=== PATIENT | male | born 1950 | race Caucasian/White ===

== ENCOUNTER 2017-06-12 12:45 | Inpatient (IN) | payer OTHER ==
[~2017-06-12] VITALS: Ht 170.2 cm; Wt 100.7 kg
[2017-06-12 13:31] LABS: PLATELET COUNT 213 x10^3mcL (130-400); RED CELL DISTRIBUTION WIDTH 14.3 % (11.5-14.5)
[2017-06-12 13:32] LABS: BASOPHIL % 0.7 % (0-2)
[2017-06-12 13:40] LABS: CALCIUM 8.5 mg/dL (8.5-10.1); CARBON DIOXIDE 27.6 mmol/L (21-32); CREATININE SERUM 1.3 mg/dL (0.7-1.3)
[2017-06-12] MEDS ORDERED: NOR10 PO (15:06)
[2017-06-12] MEDS ORDERED: SYNTHROID0.088 MG PO (15:06)
[2017-06-12] MEDS ORDERED: GLUCOPHAGE XR500 MG PO (15:06)
[2017-06-12] MEDS ORDERED: BEN20 PO (15:06)
[2017-06-12] MEDS ORDERED: SIMVASTATIN20 M1 PO (15:06)
[2017-06-12] MEDS ORDERED: KEN025C TOP (15:07)
[2017-06-12] MEDS ORDERED: LOSARTAN POTASS50 M1 PO (15:07)
[2017-06-12 15:32] VITALS: BP 158/86
[2017-06-12 15:39] VITALS: Ht 170.2 cm; Wt 100.7 kg
[2017-06-12 16:14] LABS: microscopic required? YES; urine erythrocyte TRACE (NEGATIVE)
[2017-06-12 16:26] LABS: AMPHETAMINE QUAL UR NONE DETECTED (NEG <=1000)
[2017-06-12 17:56] VITALS: BP 146/87
[2017-06-12 20:47] LABS: AMYLASE 69 U/L (25-115); LIPASE 190 IU/L (73-393); MAGNESIUM 2.1 mg/dL (1.8-2.4); PHOSPHOROUS 2.5 mg/dL (2.5-4.9)
[2017-06-12 20:52] LABS: CHOLESTEROL 131 mg/dL (<200); CHOLESTEROL/HDL RATIO 5.5; HDL CHOLESTEROL 24 mg/dL (40-60); TRIGLYCERIDES 418 mg/dL (<150)
[2017-06-12 20:55] LABS: T3 TOTAL 1.04 ng/mL
[2017-06-12 20:56] LABS: FREE T4 1.16 ng/dL (0.76-1.46); FREE THYROXINE INDEX 3.3 ug/dL (1.4-4.5); T4(THYROXINE) 8.8 ug/dL (4.7-13.3)
[2017-06-12 21:14] VITALS: BP 149/90
[2017-06-13 05:38] VITALS: BP 152/94
[2017-06-13 06:02] LABS: BASOPHIL % 0.6 % (0-2); PLATELET COUNT 191 x10^3mcL (130-400); RED CELL DISTRIBUTION WIDTH 14.3 % (11.5-14.5)
[2017-06-13 06:28] LABS: CALCIUM 8.9 mg/dL (8.5-10.1); CARBON DIOXIDE 25.9 mmol/L (21-32); CHLORIDE SERUM 105 mmol/L (98-107); CREATININE SERUM 1.1 mg/dL (0.7-1.3); GFR1 > 60 mL/min; GLUCOSE SERUM 126 mg/dL (74-106); MAGNESIUM 2.2 mg/dL (1.8-2.4); PHOSPHOROUS 3.6 mg/dL (2.5-4.9); POTASSIUM SERUM 3.8 mmol/L (3.5-5.1); SODIUM SERUM 140 mmol/L (136-145)
[2017-06-13 07:45] VITALS: BP 160/92
[2017-06-13] MEDS ORDERED: NOR10 PO (12:37)
[2017-06-13] MEDS ORDERED: COZAAR100 MG PO ×2 (12:37→12:38)
[2017-06-13 13:13] VITALS: BP 160/92
[2017-06-13 13:30] VITALS: BP 143/87
[2017-06-13 14:13] VITALS: BP 143/87
[2017-06-13 16:20] VITALS: BP 120/91
== END 2017-06-13 18:38 | disposition home or self-care (01) | DRG 74 ==
LOC: ED 12:45 → DU 14:29
PROVIDERS: Emergency Medicine; ADMIT Family Medicine
DX: G90.9 Disorder of the autonomic nervous system, unspecified (principal); E11.65 Type 2 diabetes mellitus with hyperglycemia; I10 Essential (primary) hypertension; E78.1 Pure hyperglyceridemia; E11.9 Type 2 diabetes mellitus without complications; R55 Syncope and collapse; E78.00 Pure hypercholesterolemia, unspecified; E03.9 Hypothyroidism, unspecified; E11.51 Type 2 diabetes mellitus with diabetic peripheral angiopathy without gangrene; Z79.84 Long term (current) use of oral hypoglycemic drugs; Z88.0 Allergy status to penicillin; Z82.49 Family history of ischemic heart disease and other diseases of the circulatory system; Z80.9 Family history of malignant neoplasm, unspecified; Z83.3 Family history of diabetes mellitus; Z79.899 Other long term (current) drug therapy
CPT/HCPCS: 83880; 84439; J7030; Q0092

== ENCOUNTER 2018-02-04 07:09 | Emergency (ER) | payer OTHER ==
[~2018-02-04] VITALS: Ht 170.2 cm; Wt 95.2 kg
[~2018-02-04 07:09] MED LIST: BEN20 PO; COZAAR100 MG PO; GLUCOPHAGE XR500 MG PO; KEN025C TOP; LOSARTAN POTASS50 M1 PO; NOR10 PO; SIMVASTATIN20 M1 PO; SYNTHROID0.088 MG PO
[2018-02-04 07:13] VITALS: Ht 170.2 cm; Wt 95.2 kg
[2018-02-04 07:52] LABS: BASOPHIL % 0.4 % (0-2); PLATELET COUNT 205 x10^3mcL (130-400)
[2018-02-04 08:07] LABS: CALCIUM 8.6 mg/dL (8.5-10.1); CREATININE SERUM 1.3 mg/dL (0.7-1.3); POTASSIUM SERUM 4.1 mmol/L (3.5-5.1)
[2018-02-04 08:09] LABS: ALBUMIN 3.7 g/dL (3.4-5.0); BILIRUBIN TOTAL 0.6 mg/dL (0.20-1.00); TOTAL PROTEIN, SERUM 7.3 g/dL (6.4-8.2)
[2018-02-04 09:33] LABS: UA SPECIFIC GRAVITY <=1.005 (1.005-1.035); microscopic required? YES; urine erythrocyte NEGATIVE (NEGATIVE)
[2018-02-04 10:14] VITALS: BP 137/81
== END 2018-02-04 10:14 | disposition home or self-care (01) ==
LOC: ED 07:09
PROVIDERS: Specialist
DX: N28.1 Cyst of kidney, acquired (principal); I10 Essential (primary) hypertension; E11.9 Type 2 diabetes mellitus without complications; E78.00 Pure hypercholesterolemia, unspecified; Z88.0 Allergy status to penicillin
CPT/HCPCS: 83880; J1885; J2405; J3010; Q9967